=== PATIENT | female | born 1950 | race Caucasian/White ===

== ENCOUNTER 2017-07-30 10:57 | Emergency (ER) | payer OTHER ==
[~2017-07-30] VITALS: Ht 167.6 cm; Wt 50.5 kg
[~2017-07-30 10:57] MED LIST: TOPI100 PO; [UNRECOGNIZED DRUG - OTHER] PO
[2017-07-30 11:08] VITALS: BP 130/60; PULSE 66; RESP 15; TEMP 97.8; O2SAT 98
[2017-07-30] MEDS ORDERED: MULT1TAB46 PO (11:18)
[2017-07-30] MEDS ORDERED: SODIUM CHLOR 0.9% 1000 ML INJ 1,000 ML IV ONE (11:30)
[2017-07-30 11:33] VITALS: RESP 17; O2SAT 99
[2017-07-30 11:35] VITALS: BP_SYST 121; BP_SYST 124; BP_SYST 140; BP_DIAS 66; BP_DIAS 69; BP_DIAS 71; RESP 18; RESP 20
--- NOTE | 2017-07-30 11:44 | PD ---
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 Says that she was feeling a little dizzy on the way to [facility] for an appointment with her says she took a meclizine. Says that this helped her a little bit however, while she was in the waiting room at the [facility] she felt increasingly dizzy and passed out. Says that she was out for a couple of minutes. They told her her blood pressure was 70 systolic initially and she was then transferred to the hospital via [facility]. She says that this dizziness is different than her usual dizziness when she has an episode. Says that the room was spinning. She denies one-sided weakness but says she feels diffusely weak. She has associated nausea but denies vomiting. She denies chest pain or shortness of breath although she says it feels like she is having a difficult time catching her breath. She denies abdominal pain. Says she woke up this morning with some bladder "pressure" and took 2 Azo which has helped with her symptoms. Denies dysuria, hematuria. Says she had labs done approximately 1 month ago and they were "normal". Note that she has a history of iron deficiency anemia and follows a primary care physician for this condition. She has not followed a cook jelly or neurologist. [facility] Past Medical History Anemia: Yes (RECEIVES IRON DRIPS) Asthma: No Autoimmune Disease: Yes (LUPUS) Blood Disorders: No Cancer: No Cardiovascular Problems: No COPD: No Diabetes: No Diminished Hearing: No Gastrointestinal Disorders: Yes (BLEEDING ULCERS) GERD: No Genitourinary: No Headaches: Yes Musculoskeletal: Yes (OSTEOPOROSIS) Neurologic: Yes Psychiatric: No Respiratory: Yes Seizures: Yes (FOR PAST 2 YEARS-SEES DR HANEY) Sleep Apnea: No Tetanus Vaccination: > 5 Years ?: Not Past Surgical History Abdominal Surgery: Yes (GASTRECTOMY AND VAGOTOMY) Cardiac Surgery: No Ear Surgery: No Endocrine Surgery: No Eye Surgery: No Genitourinary Surgery: No Gynecologic Surgery: Yes Hysterectomy: Yes Joint Replacement: Yes (TITANIUM PIN IN HIP) Oral Surgery: No Pacemaker: No Thoracic Surgery: No Tonsillectomy: Yes Other Surgery: Yes Social History Alcohol Use: No Tobacco Use: No Substance Use: No Allergies-Medications (Allergen,Severity, Reaction): Coded Allergies: doxycycline (Unverified Allergy, Severe, SWOLLEN TONGUE, 10/03/16) SEIZURES ferumoxytol (Unverified Allergy, Severe, Hives, 10/03/16) iron (Verified Allergy, Severe, Hives, 07/30/17) minocycline (Verified Allergy, Severe, SWOLLEN TONGUE, 07/30/17) SEIZURES ondansetron (Verified Allergy, Severe, SWOLLEN TONGUE, 07/30/17) SEIZURES tigecycline (Verified Allergy, Severe, SWOLLEN TONGUE, 07/30/17) SEIZURES Sulfa (Sulfonamide Antibiotics) (Verified Allergy, Intermediate, Hives, 01/06) aspirin (Verified Allergy, Intermediate, HIVES, 07/30/17) butalbital (Verified Allergy, Intermediate, HIVES, 07/30/17) caffeine (Verified Allergy, Intermediate, HIVES, 07/30/17) erythromycin base (Verified Allergy, Intermediate, HIVES, 07/30/17) hydroxyzine (Verified Allergy, Intermediate, HIVES, 07/30/17) levofloxacin (Verified Allergy, Intermediate, HIVES, 07/30/17) metoclopramide (Verified Allergy, Intermediate, HIVES, 07/30/17) nitrofurantoin (Verified Allergy, Intermediate, HIVES, 07/30/17) pentazocine (Verified Allergy, Intermediate, HIVES, 07/30/17) pregabalin (Verified Allergy, Intermediate, HIVES, 07/30/17) sulfamethoxazole (Unverified Allergy, Intermediate, Hives, 10/03/16) trimethoprim (Verified Allergy, Intermediate, Hives, 07/30/17) acetaminophen (Verified Adverse Reaction, Intermediate, NAUSEAS, 07/30/17) egg (Verified Adverse Reaction, Intermediate, Diarrhea, 07/30/17) propoxyphene (Verified Adverse Reaction, Intermediate, NAUSEAS, 07/30/17) Reported Meds & Prescriptions Reported Meds & Active Scripts Active Keflex (Cephalexin) 500 Mg Cap 500 Mg PO Q8H 7 Days Reported Multi Vitamin Daily (Multiple Vitamin) 1 Tab Tab 1 Tab PO DAILY Review of Systems Except as stated in HPI: all other systems reviewed are Neg Physical Exam Narrative GENERAL: Well-developed well-nourished in no apparent distress SKIN: Focused skin assessment warm/dry. HEAD: Atraumatic. Normocephalic. EYES: Pupils equal and round. No scleral icterus. No injection or drainage. EOMI ENT: No nasal bleeding or discharge. Mucous membranes pink and moist. NECK: Trachea midline. No JVD. No lymphadenopathy CARDIOVASCULAR: Regular rate and rhythm. No murmur appreciated. RESPIRATORY: No accessory muscle use. Clear to auscultation. Breath sounds equal bilaterally. GASTROINTESTINAL: Abdomen soft, non-tender, nondistended. Hepatic and splenic margins not palpable. No CVA tenderness MUSCULOSKELETAL: No obvious deformities. No clubbing. No cyanosis. No edema. NEUROLOGICAL: Awake and alert. Cranial nerves II through XII intact. Motor and sensory grossly within normal limits. Five out of 5 muscle strength in all muscle groups. Normal speech. PSYCHIATRIC: Appropriate mood and affect; insight and judgment normal. Data Data Last Documented VS Vital Signs Date Time Temp Pulse Resp B/P (MAP) Pulse Ox O2 Delivery O2 Flow Rate FiO2 07/30/17 16:01 98.0 71 16 127/63 (84) 96 Room Air Orders Orders Electrocardiogram (07/30/17 11:30) Complete Blood Count With Diff (07/30/17 11:30) Comprehensive Metabolic Panel (07/30/17 11:30) Magnesium (Mg) (07/30/17 11:30) Troponin I (07/30/17 11:30) Act Partial Throm Time (Ptt) (07/30/17 11:30) Prothrombin Time / Inr (Pt) (07/30/17 11:30) Urinalysis - C+S If Indicated (07/30/17 11:30) Chest, Single Ap (07/30/17 11:30) Ct Brain W/O Iv Contrast(Rout) (07/30/17 11:30) Blood Glucose (07/30/17 11:30) Ecg Monitoring (07/30/17 11:30) Iv Access Insert/Monitor (07/30/17 11:30) Oximetry (07/30/17 11:30) Sodium Chlor 0.9% 1000 Ml Inj (Ns 1000 M (07/30/17 11:30) Orthostatic Vital Signs (07/30/17 11:30) Promethazine (Phenergan) (07/30/17 11:45) Urine Culture (07/30/17 13:20) Ceftriaxone Inj (Rocephin Inj) (07/30/17 15:15) Sodium Chlorid 0.9% 500 Ml Inj (Ns 500 M (07/30/17 15:15) Sodium Chlorid 0.9% 500 Ml Inj (Ns 500 M (07/30/17 15:45) Ed Discharge Order (07/30/17 17:32) Labs Laboratory Tests Test 07/30/17 11:35 07/30/17 13:20 White Blood Count 11.2 TH/MM3 Red Blood Count 3.90 MIL/MM3 Hemoglobin 10.6 GM/DL Hematocrit 33.1 % Mean Corpuscular Volume 84.8 FL Mean Corpuscular Hemoglobin 27.2 PG Mean Corpuscular Hemoglobin Concent 32.1 % Red Cell Distribution Width 14.6 % Platelet Count 258 TH/MM3 Mean Platelet Volume 7.4 FL Neutrophils (%) (Auto) 83.7 % Lymphocytes (%) (Auto) 7.6 % Monocytes (%) (Auto) 5.8 % Eosinophils (%) (Auto) 2.6 % Basophils (%) (Auto) 0.3 % Neutrophils # (Auto) 9.3 TH/MM3 Lymphocytes # (Auto) 0.8 TH/MM3 Monocytes # (Auto) 0.7 TH/MM3 Eosinophils # (Auto) 0.3 TH/MM3 Basophils # (Auto) 0.0 TH/MM3 CBC Comment DIFF FINAL Differential Comment Prothrombin Time 10.2 SEC Prothromb Time International Ratio 1.0 RATIO Activated Partial Thromboplast Time 21.4 SEC Blood Urea Nitrogen 22 MG/DL Creatinine 0.92 MG/DL Random Glucose 86 MG/DL Total Protein 6.0 GM/DL Albumin 3.1 GM/DL Calcium Level 9.0 MG/DL Magnesium Level 2.5 MG/DL Alkaline Phosphatase 94 U/L Aspartate Amino Transf (AST/SGOT) 20 U/L Alanine Aminotransferase (ALT/SGPT) 16 U/L Total Bilirubin 0.3 MG/DL Sodium Level 140 MEQ/L Potassium Level 4.4 MEQ/L Chloride Level 106 MEQ/L Carbon Dioxide Level 24.0 MEQ/L Anion Gap 10 MEQ/L Estimat Glomerular Filtration Rate 61 ML/MIN Troponin I LESS THAN 0.02 NG/ML Urine Color DARK-BROWN Urine Turbidity HAZY Urine pH 5.0 Urine Specific Donner 1.009 Urine Protein NEG mg/dL Urine Glucose (UA) NEG mg/dL Urine Ketones NEG mg/dL Urine Occult Blood SMALL Urine Nitrite POS Urine Bilirubin NEG Urine Urobilinogen LESS THAN 2.0 MG/DL Urine Leukocyte Esterase SMALL Urine RBC 1 /hpf Urine WBC 2 /hpf Urine Squamous Epithelial Cells 2 /hpf Urine Bacteria OCC /hpf Urine Mucus FEW /lpf Microscopic Urinalysis Comment CULTURE INDICATED MDM Medical Decision Making Medical Screen Exam Complete: Yes Emergency Medical Condition: Yes Differential Diagnosis Urinary tract infection, CVA, generalized weakness, anemia, Narrative Course 66-year-old female presents emergency department for generalized weakness and dizziness started this morning. Says she has a history of Mnire's disease and took meclizine thinking this was the cause of her symptoms however, this did not resolve her symptoms. Says she woke up with some bladder pressure and took some Azo and this seemed to help with her symptoms. Vital signs are stable. Orthostatic vital signs are negative. Phenergan administered for nausea. 1.5 L IV fluids administered for hydration as patient was rather hypotensive according to [facility]. CBC & BMP Diagram 07/30/17 11:35 Total Protein 6.0 L, Albumin 3.1 L, Calcium Level 9.0, Magnesium Level 2.5, Alkaline Phosphatase 94, Aspartate Amino Transf (AST/SGOT) 20, Alanine Aminotransferase (ALT/SGPT) 16, Total Bilirubin 0.3 Troponin negative. Chest x-ray without acute process. Head CT demonstrates chronic small vessel ischemic disease. Nothing acute. EKG sinus rhythm without STEMI changes. Last Impressions Head CT 07/30/17 1130 Signed Impressions: CONCLUSION: Slight chronic small vessel ischemic and atrophic changes. Chest X-Ray 07/30/17 1130 Signed Impressions: CONCLUSION: No acute cardiopulmonary disease. Rocephin administered. Pt discharged with keflex. Note that patient walks with a walker chronically. I was able to walk her to the bathroom and back without any incident. In addition, after fluids nurse was able to walk her without issue. I had an extensive discussion with her regarding her condition today. Patient denies unusual dizziness at this point says she feels a little lightheaded. She says that she would refuse to stay if we admitted her because she is the caregiver for her . I gave her strict return instructions if she does not improve or worsens. Advised her to have adequate fluid intake and proper nutrition. Also recommended that if she has recurrent dizziness that she should sit or lay down immediately to avoid complications or injury. She states understanding and will comply. Diagnosis Primary Impression: Urinary tract infection Qualified Codes: N30.00 - Acute cystitis without hematuria Referrals: Primary Care Physician Additional Instructions: Take all medications as prescribed. You may start your antibiotics tomorrow. Ensure adequate fluid intake and proper nutrition. If your symptoms persist or worsen return to the emergency department immediately for further evaluation and treatment. Scripts Cephalexin (Keflex) 500 Mg Cap 500 MG PO Q8H for Infection for 7 Days, #21 CAP 0 Refills Prov: Rob Kennedy MD 07/30/17 Disposition: 01 DISCHARGE HOME Condition: Stable Reyna Hurtado Jul 30, 2017 11:44
[2017-07-30] MEDS ORDERED: PROMETHAZINE HCL 25 MG TAB PO ONE (11:45)
[2017-07-30 12:06] LABS: AUTOMATED NEUTROPHIL # 9.3 TH/MM3 (1.8-7.7); BASOPHIL % 0.3 % (0.0-2.0); EOSINOPHIL # 0.3 TH/MM3 (0-0.4); EOSINOPHIL % 2.6 % (0.0-4.0); HEMATOCRIT 33.1 % (35.0-46.0); HEMOGLOBIN 10.6 GM/DL (11.6-15.3); LYMPH % 7.6 % (9.0-44.0); LYMPHOCYTE # 0.8 TH/MM3 (1.0-4.8); MEAN CELL VOLUME 84.8 FL (80.0-100.0); MEAN CORPUSCULAR HEMOGLOBIN 27.2 PG (27.0-34.0); MEAN CORPUSCULAR HGB CONC 32.1 % (32.0-36.0); MEAN PLATELET VOLUME 7.4 FL (7.0-11.0); MONO % 5.8 % (0.0-8.0); MONOCYTE # 0.7 TH/MM3 (0-0.9); NEUT % 83.7 % (16.0-70.0); PLATELET COUNT 258 TH/MM3 (150-450); RED CELL DISTRIBUTION WIDTH 14.6 % (11.6-17.2); WHITE BLOOD COUNT 11.2 TH/MM3 (4.0-11.0)
[2017-07-30 12:18] LABS: PROTHROMBIN TIME - PATIENT 10.2 SEC (9.8-11.6)
[2017-07-30 12:21] LABS: ALBUMIN 3.1 GM/DL (3.4-5.0); AST (GOT) 20 U/L (15-37); BLOOD UREA NITROGEN 22 MG/DL (7-18); CHLORIDE 106 MEQ/L (98-107); CREATININE 0.92 MG/DL (0.50-1.00); GLOMERULAR FILTRATION RATE 61 ML/MIN (>89); GLUCOSE,RANDOM 86 MG/DL (74-106); MAGNESIUM 2.5 MG/DL (1.5-2.5); SODIUM (NA) 140 MEQ/L (136-145)
[2017-07-30 12:22] LABS: ALT (GPT) 16 U/L (10-53)
[2017-07-30 12:26] LABS: ALKALINE PHOSPHATASE 94 U/L (45-117); TOTAL BILIRUBIN ADULT 0.3 MG/DL (0.2-1.0); TROPONIN I LESS THAN 0.02 NG/ML (0.02-0.05)
--- NOTE | 2017-07-30 12:30 | RADRPT ---
EXAM DATE: 07/30/2017 12:24 PM EDT AGE/SEX: 66 years / Female INDICATIONS: Dizziness, syncope CLINICAL DATA: This is the patient's initial encounter. Patient reports that signs and symptoms have been present for 1 day and indicates a pain score of 0/10. MEDICAL/SURGICAL HISTORY: Anemia. Hysterectomy. RADIATION DOSE: 56.35 CTDI (mGy) COMPARISON: No prior exams available for comparison. TECHNIQUE: CT of the head without contrast. Using automated exposure control and adjustment of the mA and/or kV according to patient size, radiation dose was kept as low as reasonably achievable to ob tain optimal diagnostic quality images. FINDINGS: There is no evidence for intracranial hemorrhage, mass effect, mass lesions, or edema. The visualize d bony structures appear intact. Slight degree of brain atrophy is seen. Slight periventricular whit e matter changes are seen nonspecific mostly consistent with chronic small vessel ischemic changes. There are no signs of acute infarction for technique. CONCLUSION: Slight chronic small vessel ischemic and atrophic changes. Electronically signed by: Rajan Chatterjee MD 07/30/2017 12:29 PM EDT
--- NOTE | 2017-07-30 12:34 | RADRPT ---
EXAM DATE: 07/30/2017 12:16 PM EDT AGE/SEX: 66 years / Female INDICATIONS: Shortness of breath. CLINICAL DATA: This is the patient's initial encounter. Patient reports that signs and symptoms have been present for 1 day and indicates a pain score of 0/10. MEDICAL/SURGICAL HISTORY: None. None. COMPARISON: POI, XR CHEST PA AND LAT, 09/30/2015. . FINDINGS: There is mild parenchymal irregularity right upper lobe laterally and right lower lung above the cost ophrenic angle not significantly changed. This has the appearance of chronic scarring. Focal consolid ation is not seen. Heart and mediastinum are unremarkable for technique. CONCLUSION: No acute cardiopulmonary disease. Electronically signed by: Rajan Chatterjee MD 07/30/2017 12:33 PM EDT
[2017-07-30 13:30] VITALS: BP 138/77; PULSE 78; RESP 16; TEMP 97.8; O2SAT 98
--- NOTE | 2017-07-30 14:19 | EKG ---
Date Performed: 07/30/2017 Time Performed: 11:59:31 PTAGE: 66 years EKG: Sinus rhythm NORMAL ECG No significant change from prior electrocardiogram. DOCTOR: Maxim Cross Interpretating Date/Time 07/30/2017 14:17:33
[2017-07-30 15:03] LABS: BACTERIA, URINE OCC /hpf; BILIRUBIN, URINE NEG (NEG); BLOOD, URINE SMALL (NEG); GLUCOSE,URINE NEG (NEG); KETONE, URINE NEG (NEG); MUCUS URINE FEW /lpf (OCC); NITRITE,URINE POS (NEG); SQUAMOUS EPITHELIAL CELL URINE 2 /hpf (0-5); URINE COLOR DARK-BROWN (YELLW/STRAW); URINE LEUKOCYTE ESTERASE SMALL (NEG)
[2017-07-30] MEDS ORDERED: SODIUM CHLORID 0.9% 500 ML INJ 500 ML IV ONE ×2 (15:15→15:45)
[2017-07-30] MEDS ORDERED: cefTRIAXone INJ 1,000 MG in SODIUM CHLORIDE 0.9% INJ 100 ML IV ONE (15:15)
[2017-07-30 16:01] VITALS: BP 127/63; PULSE 71; RESP 16; TEMP 98; O2SAT 96
[2017-07-30] MEDS ORDERED: CEPH-460 PO (16:18)
[2017-07-30 17:37] VITALS: BP 122/77; TEMP 97.8
== END 2017-07-30 17:40 | disposition home or self-care (01) ==
LOC: NEPC 10:57
DX: N30.00 Acute cystitis without hematuria (principal); D50.9 Iron deficiency anemia, unspecified; R42 Dizziness and giddiness; R11.0 Nausea
CPT/HCPCS: 70450; 71045; 80053; 81001; 83735; 84484; 85025; 85610; 85730; 87086; 93005; 96361; 96365; 99285; J0696; J7030; J7040; Q0169